=== PATIENT | male | born 1960 | race Caucasian/White ===

== ENCOUNTER 2017-06-18 18:20 | Emergency (ER) | payer BC ==
[~2017-06-18] VITALS: Ht 185.4 cm; Wt 109.0 kg
[2017-06-18] MEDS ORDERED: NORCO 5/3251 TABLET PO (20:24)
[2017-06-18 22:00] VITALS: BP 125/78
== END 2017-06-18 22:01 | disposition home or self-care (01) ==
LOC: EME 18:20
DX: M54.42 Lumbago with sciatica, left side (principal)
CPT/HCPCS: 99281; 99284; J2270